=== PATIENT | female | born 1955 | race Caucasian/White ===

== ENCOUNTER 2019-02-12 15:52 | Outpatient (CLI) | payer BC ==
--- NOTE | 2019-02-12 16:24 | RAD ---
EXAM: 7 views of the cervical spine HISTORY: Neck pain COMPARISON: None FINDINGS: AP, lateral, oblique, flexion/extension, and open mouth odontoid views of the cervical spin e shows normal height and alignment of the vertebral bodies and intervertebral discs without fracture or subluxation. Moderate osteophytes are seen in the mid cervical spine. No prevertebral sof t tissue swelling is seen. Alignment is unchanged with flexion and extension. IMPRESSION: Degenerative changes in the cervical spine with unchanged alignment with bending
--- NOTE | 2019-02-12 16:55 | MRI ---
MRI Cervical spine without contrast: HISTORY: Foraminal stenosis of cervical region. COMPARISON: 08/08/2016 FINDINGS: Mucosal thickening is seen in the left maxillary antrum partially imaged. Again noted is a small amount of fluid located between the right occipital condyle and the lateral ma sses of the C1 vertebral body similar to prior exam. There are degenerative changes seen at the articulation of the odontoid with the anterior arch of C1. No significant cord signal abnormality. Paravertebral soft tissues have a normal appearance and normal signal intensity. Mild degenerative changes are again seen in the cervical spine. C1-2:No significant stenosis. C2-3: There is no disc bulge or disc herniation. The central spinal canal and neural foramina are pat ent. C3-4: Prominent facet hypertrophic changes are again seen on the left again resulting in moderate to severe left-sided neural foraminal narrowing. Central spinal canal and right neural foramen are patent. C4-5: There is a mild broad-based disc osteophyte complex in addition to uncinate process hypertrophy . There is slight mass effect of the ventral subarachnoid space. Mild to moderate bilateral neural foraminal narrowing is again seen. C5-6: Broad-based disc osteophyte complex is present with uncinate process hypertrophy again noted. T his does narrow the ventral subarachnoid space. Facet hypertrophic changes are present on the left. Moderate bilateral neural foraminal narrowing is present. C6-7: There is loss of intervertebral disc height. Broad-based disc osteophyte complex is present. Th is narrows the ventral subarachnoid space with mild generalized narrowing of the central spinal canal. Findings result in moderate right and severe left-sided neural foraminal narrowing. C7-T1: There is no disc bulge or disc herniation. The central spinal canal and neural foramina are pa tent. IMPRESSION: 1. Multilevel degenerative changes not significantly progressed when compared to the prior study with greater degrees of neural foraminal narrowing also similar to prior exam. 2. Fluid again seen in the joint space between the right occipital condyle and the lateral mass of C1 likely reflective of degenerative changes.
== END 2019-02-12 15:53 | disposition home or self-care (01) ==
LOC: TBSIIMAG 15:52
PROVIDERS: ATTEND Anesthesiology Pain Medicine
DX: M48.02 Spinal stenosis, cervical region (principal); M47.812 Spondylosis without myelopathy or radiculopathy, cervical region
CPT/HCPCS: 72052; 72141

== ENCOUNTER 2019-03-30 14:15 | Outpatient (CLI) | payer BC ==
--- NOTE | 2019-03-30 14:41 | CT ---
CT of the cervical spine without contrast: 03/30/2019 COMPARISON: None HISTORY: Neck pain, cervical radiculopathy TECHNIQUE: Axial CT imaging at 2 mm intervals through cervical spine with coronal and sagittal reform atted imaging FINDINGS: The C1 ring is intact. There is mild/moderate degenerative change at the atlantoaxial interspace. No significant anterolisth esis or retrolisthesis is appreciated. No prevertebral soft tissue swelling. Evaluation for central canal and/or neural foraminal stenosis is limited on routine CT examination. C2-3: No osseous cause of significant central canal or neural foraminal stenosis. There is mild irreg ularity involving the lamina on the right at the C2 level which may signify remote trauma or prior surgical change. C3-4: 2 mm of anterolisthesis noted. Prominent facet and uncovertebral osteophyte formation on the le ft with severe left neural foraminal stenosis. No osseous cause of significant central canal or right neural foraminal stenosis. C4-5: Bilateral facet and uncovertebral osteophyte formation with probable mild bilateral neural fora elizabeth stenosis, right greater than left. No osseous cause of significant central canal stenosis. C5-6: Facet and uncovertebral osteophyte formation on the left causes at least mild left neural ac inal stenosis. No osseous cause of significant central canal or right neural foraminal stenosis. C6-7: There is disc space narrowing and degenerative endplate change with at least mild central canal stenosis on the basis of a disc osteophyte complex. Bilateral uncovertebral osteophyte formation noted with bilateral neural foraminal encroachment and at least moderate bilateral neural foraminal s tenosis. C7-T1: Mild bilateral facet hypertrophy, right greater than left. No osseous cause of significant melissa tral canal or neural foraminal stenosis. No acute fracture or dislocation. No worrisome lytic or blastic bone lesion. Imaged lung apices unremarkable. IMPRESSION: Multilevel degenerative change as detailed above.
== END 2019-03-30 14:16 | disposition home or self-care (01) ==
LOC: TBSIIMAG 14:15
PROVIDERS: ATTEND Physician Assistant Surgical
DX: M50.10 Cervical disc disorder with radiculopathy, unspecified cervical region (principal); M48.02 Spinal stenosis, cervical region; M47.22 Other spondylosis with radiculopathy, cervical region
CPT/HCPCS: 72125

== ENCOUNTER 2019-10-02 08:51 | Outpatient (CLI) | payer BC ==
--- NOTE | 2019-10-02 09:34 | MMO ---
Bilateral MAMMO Bilat Diag DDI+KULDIP. CLINICAL HISTORY: Patient is 64 years old and is seen for diagnostic exam. The patient has no family history of breast cancer. The patient has no personal history of cancer. VIEWS: The views performed were: bilateral craniocaudal with tomosynthesis; bilateral mediolateral oblique with tomosynthesis; and bilateral mediolateral with tomosynthesis. FILMS COMPARED: The present examination has been compared to prior imaging studies performed at [facility] on 10/02/2019, and at [facility] on 02/14/2012, 10/28/2013 and 10/11/2016. This study has been interpreted with the assistance of computer-aided detection. MAMMOGRAM FINDINGS: There are scattered fibroglandular densities. Finding 1: There is a stable intramammary lymph node seen in the left breast. There are no concerning mammographic or sonographic abnormalities in the area of palpable concern. The patient is referred back to her clinician. Negative imaging findings should not preclude biopsy if clinical findings are suspicious. Finding 2: There are stable benign appearing calcifications seen in both breasts. There are no suspicious masses, suspicious calcifications, or new areas of architectural distortion. IMPRESSION: FINDING 1: THERE ARE NO CONCERNING MAMMOGRAPHIC ABNORMALITIES IN THE AREA OF PALPABLE CONCERN. THE PATIENT IS REFERRED BACK TO HER CLINICIAN. NEGATIVE IMAGING FINDINGS SHOULD NOT PRECLUDE BIOPSY IF CLINICAL FINDINGS ARE SUSPICIOUS. THE RESULTS OF THIS EXAM WERE SENT TO THE PATIENT. ACR BI-RADS Category 2 - Benign finding MAMMOGRAPHY NOTE: 1. A negative mammogram report should not delay a biopsy if a dominant of clinically suspicious mass is present. 2. Approximately 10% to 15% of breast cancers are not detected by mammography. 3. Adenosis and dense breasts may obscure an underlying neoplasm. Reported by: ZULAY PATEL MD Electonically Signed: [id number]
--- NOTE | 2019-10-02 09:39 | MMO ---
Left US Breast Limited Lt. CLINICAL HISTORY: Patient is 64 years old and is seen for . VIEWS: The views performed were: . FILMS COMPARED: The present examination has been compared to prior imaging studies performed at [facility] on 10/02/2019, and at [facility] on 02/14/2012, 10/28/2013 and 10/11/2016. This study has been interpreted with the assistance of computer-aided detection. LEFT BREAST ULTRASOUND FINDINGS: There is a lymph node seen in the left breast at 3 o'clock. There are no concerning mammographic or sonographic abnormalities in the area of palpable concern. The patient is referred back to her clinician. Negative imaging findings should not preclude biopsy if clinical findings are suspicious. IMPRESSION: THERE ARE NO CONCERNING SONOGRAPHIC ABNORMALITIES IN THE AREA OF PALPABLE CONCERN. THE PATIENT IS REFERRED BACK TO HER CLINICIAN. NEGATIVE IMAGING FINDINGS SHOULD NOT PRECLUDE BIOPSY IF CLINICAL FINDINGS ARE SUSPICIOUS. THE RESULTS OF THIS EXAM WERE SENT TO THE PATIENT. ACR BI-RADS Category 2 - Benign finding MAMMOGRAPHY NOTE: 1. A negative mammogram report should not delay a biopsy if a dominant of clinically suspicious mass is present. 2. Approximately 10% to 15% of breast cancers are not detected by mammography. 3. Adenosis and dense breasts may obscure an underlying neoplasm. Reported by: ZULAY PATEL MD Electonically Signed: [id number]
== END 2019-10-02 08:52 | disposition home or self-care (01) ==
LOC: BICMAMMO 08:51
PROVIDERS: ATTEND Internal Medicine
DX: N63.20 Unspecified lump in the left breast, unspecified quadrant (principal)
CPT/HCPCS: 77066; G0279

== ENCOUNTER 2022-10-23 11:52 | Outpatient (CLI) | payer MEDICARE | END 2022-10-23 11:53 | disposition home or self-care (01) | LOC: BICRAD 11:52 | PROVIDERS: ATTEND Nurse Practitioner Family | DX: M25.562 Pain in left knee (principal); M25.561 Pain in right knee; M17.12 Unilateral primary osteoarthritis, left knee ==

== ENCOUNTER 2023-08-01 10:15 | Outpatient (CLI) | payer MEDICARE | END 2023-08-01 10:16 | disposition home or self-care (01) | LOC: BICULT 10:15 | PROVIDERS: ATTEND Family Medicine | DX: E03.9 Hypothyroidism, unspecified (principal); E04.1 Nontoxic single thyroid nodule; Z86.39 Personal history of other endocrine, nutritional and metabolic disease; Z00.00 Encounter for general adult medical examination without abnormal findings; Z79.899 Other long term (current) drug therapy | CPT/HCPCS: 36415; 76536; 80053; 80061; 81001; 83036; 84443; 85025 ==

== ENCOUNTER → 2024-04-08 | Outpatient (CLI) | payer MEDICARE | LOC: SCSMRI 14:23 | PROVIDERS: ATTEND Family Medicine | DX: R51.9 Headache, unspecified (principal) | CPT/HCPCS: 36415; 70551; 70553; 76376; 82565 ==

== ENCOUNTER 2024-04-22 10:52 | Outpatient (CLI) | payer MEDICARE | END 2024-04-22 10:53 | disposition home or self-care (01) | LOC: SCSMRI 10:52 | PROVIDERS: ATTEND Nurse Practitioner Family | DX: M48.02 Spinal stenosis, cervical region (principal); M47.812 Spondylosis without myelopathy or radiculopathy, cervical region | CPT/HCPCS: 72141 ==